=== PATIENT | male | born 1990 ===

== ENCOUNTER 2024-07-12 12:00 | Inpatient (IN) | payer OTHER ==
[~2024-07-12] VITALS: Ht 167.6 cm; Wt 99.8 kg
[2024-07-17 21:20] LABS: RH POSITIVE
[2024-07-18 09:04] VITALS: BP 137/96
[2024-07-22] MEDS ORDERED: CEFTRIAXONE SODIUM 2,000 MG VIAL ONE (12:22)
[2024-07-22] MEDS ORDERED: METRONIDAZOLE/SODIUM CHLORIDE 500 MG/100 ML PIGGYBACK IV ONE (12:22)
[2024-07-22] MEDS ORDERED: SUGAMMADEX SODIUM 200 MG/2 ML VIAL IV ONE (15:06)
[2024-07-22] MEDS ORDERED: MORPHINE SULFATE 4 MG/ML VIAL IV PRN (17:00)
[2024-07-22] MEDS ORDERED: OxyCODONE HCL 5 MG TABLET (ROXICODONE) PO PRN (17:00)
[2024-07-22] MEDS ORDERED: ONDANSETRON HCL 2 MG/ML VIAL IV PRN (17:00)
[2024-07-22] MEDS ORDERED: POLYETHYLENE GLYCOL 3350 17 GM BLIST.PACK PO SCH (17:00)
[2024-07-22] MEDS ORDERED: OxyCODONE HCL/APAP UD (PERCOCET) PO PRN (17:00)
[2024-07-22] MEDS ORDERED: RINGERS SOLUTION,LACTATED 1,000 ML IV SCH (17:00)
[2024-07-22] MEDS ORDERED: GABAPENTIN 300 MG CAPSULE PO SCH (17:00)
[2024-07-22] MEDS ORDERED: SIMETHICONE 125 MG CAPSULE PO SCH (17:00)
[2024-07-22] MEDS ORDERED: MORPHINE SULFATE 4 MG/ML VIAL IV ONE ×2 (17:25→17:55)
[2024-07-22] MEDS ORDERED: MORPHINE SULFATE 2 MG,MORPHINE SULFATE 4 MG IV PRN (17:30)
[2024-07-22] MEDS ORDERED: ACETAMINOPHEN 500 MG GEL..CAP PO SCH (18:00)
[2024-07-22] MEDS ORDERED: ONDANSETRON HCL 2 MG/ML VIAL ONE (19:02)
[2024-07-22] MEDS ORDERED: ENALAPRILAT DIHYDRATE 1.25 MG/ML VIAL IV ONE (19:10)
[2024-07-22] MEDS ORDERED: ONDANSETRON HCL 2 MG/ML VIAL IV ONE (19:10)
[2024-07-22] MEDS ORDERED: ENALAPRILAT DIHYDRATE 1.25 MG/ML VIAL IV PRN (19:30)
[2024-07-22 20:10] VITALS: BP 142/87; O2SAT 96
[2024-07-22 20:31] LABS: HEMOGLOBIN 15.8 g/dL (13-16.00); MEAN CELL VOLUME 80.3 fL (80.0-100.00); MEAN CORPUSCULAR HEMOGLOBIN 26.9 pg (27.00-32.0); MEAN CORPUSCULAR HGB CONC 33.5 g/dl (32.0-36.0); PLATELET COUNT 228 K/uL (150-450); RED BLOOD COUNT 5.85 M/uL (4.00-6.00); RED CELL DISTRIBUTION WIDTH 14.5 % (11.5-14.5)
[2024-07-22 20:45] LABS: CREATININE SERUM 0.73 mg/dL (0.70-1.30); GFR 121.57; MAGNESIUM 1.8 mg/dL (1.8-2.4); PHOSPHOROUS 2.9 mg/dL (2.5-4.9); POTASSIUM 3.87 mEq/L (3.5-5.1)
[2024-07-22] MEDS ORDERED: FAMOTIDINE/PF 20 MG/2 ML VIAL IV PUSH SCH (21:00)
[2024-07-23] VITALS: BP 138/80; O2SAT 98
[2024-07-23 06:46] LABS: HEMATOCRIT 45.2 % (39.0-48.0); HEMOGLOBIN 15.6 g/dL (13-16.00); MEAN CELL VOLUME 78.5 fL (80.0-100.00); MEAN CORPUSCULAR HGB CONC 34.5 g/dl (32.0-36.0); PLATELET COUNT 256 K/uL (150-450); RED BLOOD COUNT 5.76 M/uL (4.00-6.00); RED CELL DISTRIBUTION WIDTH 14.5 % (11.5-14.5)
[2024-07-23 07:26] LABS: ALBUMIN 3.6 gm/dL (3.4-5.0); CALCIUM 9.2 mg/dL (8.5-10.1); CREATININE SERUM 0.66 mg/dL (0.70-1.30); GFR 136.57; PHOSPHOROUS 3.8 mg/dL (2.5-4.9); POTASSIUM 4.25 mEq/L (3.5-5.1)
[2024-07-23 08:00] VITALS: BP 154/74; O2SAT 97
[2024-07-23] MEDS ORDERED: MAGNESIUM CHLORIDE 70 MG TABLET.DR PO SCH (09:00)
[2024-07-23] MEDS ORDERED: LACTOBACILLUS ACIDOPHILUS 1 CAP CAP PO SCH (09:00)
[2024-07-23] MEDS ORDERED: ENOXAPARIN SODIUM 40 MG/0.4 ML SYRINGE SUBCUTANEO SCH (17:00)
[2024-07-23] MEDS ORDERED: FAMOtidine 20 MG TABLET PO SCH (17:00)
[2024-07-23 20:01] VITALS: BP 130/77; O2SAT 96
[2024-07-24 00:30] VITALS: BP 135/77; O2SAT 100
[2024-07-24 07:44] LABS: HEMATOCRIT 43.5 % (39.0-48.0); HEMOGLOBIN 14.9 g/dL (13-16.00); MEAN CORPUSCULAR HEMOGLOBIN 27.1 pg (27.00-32.0); MEAN CORPUSCULAR HGB CONC 34.3 g/dl (32.0-36.0); PLATELET COUNT 247 K/uL (150-450); RED CELL DISTRIBUTION WIDTH 14.6 % (11.5-14.5)
[2024-07-24 08:24] VITALS: BP 132/90; O2SAT 98
[2024-07-24 08:54] LABS: ALBUMIN 3.5 gm/dL (3.4-5.0); CREATININE SERUM 0.7 mg/dL (0.70-1.30); GFR 127.6; MAGNESIUM 1.9 mg/dL (1.8-2.4); PHOSPHOROUS 2.9 mg/dL (2.5-4.9); POTASSIUM 3.92 mEq/L (3.5-5.1)
== END 2024-07-24 17:03 | disposition home or self-care (01) | DRG 334 ==
LOC: SURH 07-22 07:00 → O/R 07-22 08:40 → SURH 07-22 08:40
PROVIDERS: ADMIT Colon & Rectal Surgery; ATTEND Colon & Rectal Surgery
PROC: 0DNW4ZZ Release Peritoneum, Percutaneous Endoscopic Approach (ICD-10-PCS; 2024-07-22)
PROC: 0DJD8ZZ Inspection of Lower Intestinal Tract, Via Natural or Artificial Opening Endoscopic (ICD-10-PCS; 2024-07-22)
PROC: 0DTP4ZZ Resection of Rectum, Percutaneous Endoscopic Approach (ICD-10-PCS; principal; 2024-07-22 07:00)
DX: K57.20 Diverticulitis of large intestine with perforation and abscess without bleeding (principal)

== ENCOUNTER 2024-07-19 06:00 | Day surgery (SDC) | payer OTHER ==
[2024-07-19] MEDS ORDERED: ONDANSETRON HCL 2 MG/ML VIAL IV ONE (08:30)
[2024-07-19] MEDS ORDERED: fentaNYL CITRATE 50 MCG/ML AMPUL IV PUSH ONE (08:30)
[2024-07-19] MEDS ORDERED: MIDAZOLAM HCL 2 MG/2 ML VIAL IV ONE (08:30)
[2024-07-19] MEDS ORDERED: DIPHENHYDRAMINE HCL 50 MG/ML VIAL 1ML IV ONE (08:30)
== END 2024-07-19 09:45 | disposition home or self-care (01) ==
LOC: AMB-ENDOS 06:00
PROVIDERS: ATTEND Colon & Rectal Surgery
DX: K62.1 Rectal polyp (principal); K57.32 Diverticulitis of large intestine without perforation or abscess without bleeding